=== PATIENT | female | born 1990 | race Caucasian/White ===

== ENCOUNTER 2017-02-12 13:51 | Emergency (ER) | payer BC ==
[2017-02-12 14:03] VITALS: BP 95/57
[2017-02-12] MEDS ORDERED: Albuterol HFA INHALER* 8 gm MDI INH ONE (14:41)
--- NOTE | 2017-02-12 14:42 | UC ---
Respiratory Complaint HPI - HPI Summary HPI Summary: 26 yo smoker with cough (productive) x 4 days no f/c no n/v she is 14 wks smoker has used inhaler in the past - History of Current Complaint Chief Complaint: UCRespiratory Stated Complaint: UPPER RESP Time Seen by Provider: 02/12/17 14:14 Hx Obtained From: Patient Hx Last Menstrual Period: 06/17/15 Onset/Duration: Gradual Onset, Lasting Days Timing: Constant Severity Initially: Mild Severity Currently: Moderate Pain Intensity: 2 Pain Scale Used: 0-10 Numeric Character: Cough: Productive Aggravating Factors: Deep Breaths, Recumbent Position, Nothing - talking Alleviating Factors: Nothing Associated Signs And Symptoms: Positive: Wheezing Related History: Similar Episode/Dx as: - bronchitis - Allergies/Home Medications Allergies/Adverse Reactions: Allergies Allergy/AdvReac Type Severity Reaction Status Date / Time Tramadol Allergy Intermediate Itching Verified 02/12/17 13:58 PMH/Surg Hx/FS Hx/Imm Hx Previously Healthy: Yes Respiratory History: Bronchitis - Surgical History Surgical History: Yes Surgery Procedure, Year, and Place: TONSILLECTOMY. D&C - Family History Known Family History: Positive: Cardiac Disease, Respiratory Disease - Social History Alcohol Use: None Substance Use Type: None Smoking Status (MU): Heavy Every Day Tobacco Smoker Type: Cigarettes Amount Used/How Often: 1 pack per day Length of Time of Smoking/Using Tobacco: 7 yrs Have You Smoked in the Last Year: Yes Household Exposure Type: Cigarettes Cessation Counseling: Patient Advised to Stop Review of Systems Constitutional: Negative Skin: Negative Eyes: Negative ENT: Negative Respiratory: Cough Cardiovascular: Negative Gastrointestinal: Negative Genitourinary: Negative Motor: Negative Neurovascular: Negative Musculoskeletal: Negative Neurological: Negative Psychological: Negative All Other Systems Reviewed And Are Negative: Yes Physical Exam Triage Information Reviewed: Yes Appearance: Well-Appearing, No Pain Distress, Well-Nourished Vital Signs: Initial Vital Signs Temp 98.3 F 02/12/17 13:58 Pulse 97 02/12/17 13:58 Resp 16 02/12/17 13:58 BP 95/57 02/12/17 13:58 Pulse Ox 99 02/12/17 13:58 Eyes: Positive: Conjunctiva Clear ENT: Positive: Hearing grossly normal, Pharynx normal, TMs normal. Negative: Nasal congestion, Nasal drainage, Tonsillar swelling, Tonsillar exudate, Trismus , Muffled/hoarse voice Neck: Positive: Supple, Nontender, No Lymphadenopathy Respiratory: Positive: No respiratory distress, No accessory muscle use, Wheezing - with forced expiration Cardiovascular: Positive: RRR, No Murmur Musculoskeletal: Positive: ROM Intact, No Edema Neurological: Positive: Alert Psychological Exam: Normal Skin Exam: Normal UC Diagnostic Evaluation - Laboratory O2 Sat by Pulse Oximetry: 99 - normal/not hypoxic Respiratory Course/Dx - Differential Dx/Diagnosis Provider Diagnoses: acute bronchitis with bronchospasm. 14 wks . tobacco abuse Discharge - Discharge Plan Condition: Stable Disposition: HOME Prescriptions: Amoxicillin (*) [Amoxicillin 875 MG (*)] 875 mg PO BID #14 tab Prednisone [Deltasone] 40 mg PO DAILY #10 tab Patient Education Materials: Acute Bronchitis (ED) Referrals: Richie St [Primary Care Provider] - Additional Instructions: YOU NEED TO STOP SMOKING recheck for worsening symptoms recheck in 4 days if not better use inhaler 2 puffs 4x day for 7 days
[2017-02-12] MEDS ORDERED: Ondansetron ODT TAB* 4 MG PO ONE (15:02)
== END 2017-02-12 14:59 | disposition home or self-care (01) ==
LOC: UCCORT 13:51
DX: O26.892 Other specified pregnancy related conditions, second trimester (principal); J02.9 Acute pharyngitis, unspecified; O99.332 Smoking (tobacco) complicating pregnancy, second trimester; J20.9 Acute bronchitis, unspecified; Z3A.14 14 weeks gestation of pregnancy
CPT/HCPCS: 99213; A9270-GY; G0463

== ENCOUNTER 2018-03-31 14:18 | Emergency (ER) | payer BC ==
[2018-03-31 14:33] VITALS: BP 113/55
--- NOTE | 2018-03-31 14:54 | UC ---
Abdominal Pain Female HPI - HPI Summary HPI Summary: 27 year old female with onset of mid abdominal pain yesterday morning. States pain has been fairly constant but does wax and wane with intensity. Associated with nausea and several episodes of watery diarrhea of yellowish stool. Denies fever, chills, CP, SOB, back or flank pain, dysuria, frequency, urgency, hematuria, vaginal discharge. Last normal menses was end of January into February. Reports 5 days of spotting at end of February. Sexually active. No contraception. PSH significant for D&C, elective . - History of Current Complaint Chief Complaint: UCAbdominalPain Stated Complaint: STOMACH COMPLAINT Time Seen by Provider: 03/31/18 14:37 Hx Obtained From: Patient Hx Last Menstrual Period: 06/17/15 ?: No - Possible Onset/Duration: Gradual Onset, Lasting Days - 2 Timing: Constant Severity Initially: Mild Severity Currently: Severe Pain Intensity: 7 Location: Other - Mid-abdominal/supraumbilical Radiates: No Character: Unable to describe Alleviating Factor(s): Position, Other: - movement Associated Signs and Symptoms: Positive: Nausea, Diarrhea. Negative: Fever, Chest Pain, Dizzy, Back Pain, Constipation, Blood in Stool, Urinary Symptoms, Vaginal Bleeding, Vaginal Discharge, Vomiting - Risk Factors Ectopic Risk Factor: Negative Ovarian Torsion Risk Factor: Negative Allergies/Adverse Reactions: Allergies Allergy/AdvReac Type Severity Reaction Status Date / Time tramadol Allergy Itching Verified 03/31/18 14:36 PMH/Surg Hx/FS Hx/Imm Hx Previously Healthy: Yes - Surgical History Surgical History: Yes Surgery Procedure, Year, and Place: TONSILLECTOMY. D&C. Elective - Family History Known Family History: Positive: Cardiac Disease, Respiratory Disease - Social History Occupation: Employed Full-time Lives: With Family Alcohol Use: None Substance Use Type: None Smoking Status (MU): Heavy Every Day Tobacco Smoker Type: Cigarettes Amount Used/How Often: 1 pack per day Length of Time of Smoking/Using Tobacco: 7 yrs Have You Smoked in the Last Year: Yes Household Exposure Type: Cigarettes Review of Systems Constitutional: Negative Skin: Negative Respiratory: Negative Cardiovascular: Negative Gastrointestinal: Abdominal Pain, Diarrhea, Nausea Genitourinary: Negative Is Patient Immunocompromised?: No All Other Systems Reviewed And Are Negative: Yes Physical Exam Triage Information Reviewed: Yes Appearance: Pain Distress, Other: - Overweight Vital Signs: Initial Vital Signs Temp 98.2 F 03/31/18 14:28 Pulse 89 03/31/18 14:28 Resp 18 03/31/18 14:28 BP 113/55 03/31/18 14:28 Pulse Ox 99 03/31/18 14:28 Vital Signs Reviewed: Yes Respiratory: Positive: Lungs clear, Normal breath sounds, No respiratory distress Cardiovascular: Positive: RRR, No Murmur Abdomen Description: Positive: No Organomegaly, Soft, Guarding - RLQ, McBurney' s Point Tenderness. Negative: CVA Tenderness (R), CVA Tenderness (L) Bowel Sounds: Positive: Present, Hyperactive Skin Exam: Normal Diagnostics - Laboratory Diagnostic Studies Completed/Ordered: POC urinalysis + trace blood, POC urine negative Abd Pain Female Course/Dx - Course Course Of Treatment: 27 year old female with onset of mid abdominal pain yesterday morning with nasuea and several episodes of watery, yellow diarrhea. Denies fever, chills, urinary symptoms, back/flank pain, or vaginal discharge. POC urinalysis showed trace blood. POC urine negative. Abdominal pain worsens with any movement and patient was exquisitly tender to RLQ on exam. Recommend evaluation in ED. Patient verbalizes understanding and agrees with POC. - Differential Dx/Diagnosis Differential Diagnosis: Appendicitis, Gall Bladder Disease, Pancreatitis, Pelvic Inflammatory Disease, Renal Colic, Urinary Tract Infection Provider Diagnoses: Acute abdominal pain in a female - Physician Notification/Consults Discussed Care of Patient With: Kathy Ho NP Time Discussed With Above Provider: 15:02 Instructed by Provider To: MD Will See In ED - Patient to go by private vehicle. Discharge - Sign-Out/Discharge Documenting (check all that apply): Patient Departure - Discharge Plan Condition: Stable Disposition: HOME-RECOMMEND TO ED Patient Education Materials: Acute Abdominal Pain (ED) Referrals: No Primary Care Phys,NOPCP [Primary Care Provider] - Additional Instructions: Based on your symptoms I am recommending that you be evaluated in the Emergency Room to rule out significant abdominal disease such as appendicitis, gall bladder disease, or pancreatitis. - Billing Disposition and Condition Condition: STABLE Disposition: Home-Recommend to ED
== END 2018-03-31 15:00 | disposition home health service (06) ==
LOC: UCCORT 14:18
DX: R10.9 Unspecified abdominal pain (principal); Z88.6 Allergy status to analgesic agent; F17.210 Nicotine dependence, cigarettes, uncomplicated
CPT/HCPCS: 81003; 84702; 99212; G0463

== ENCOUNTER 2019-04-28 17:41 | Emergency (ER) | payer BC ==
[2019-04-28 17:55] VITALS: BP 119/67
--- NOTE | 2019-04-28 18:07 | UC ---
Cardiac HPI - HPI Summary HPI Summary: 28 yo with onset of severe right chest pain with radiation to the back, about one hour prior to admission, without nausea or diaphoresis. She has had about one month of upper abdominal discomfort, no relation to meals, episodic, without clear exacerbating or relieving factors. No associated vomiting, nausea , dysphaigia, diarrhea or lower abdominal pain Took Tums today without relief. Ate a burger today at lunch, smokes up to 2 ppd and drinks up to 48 ounces of iced caffeinated drinks per day. Not short of breath, but has a pain with a deep breath. 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 Has no recall of a specific injury. - History of Current Complaint Chief Complaint: UCChestPain Stated Complaint: CHEST PAIN Time Seen by Provider: 04/28/19 17:57 Hx Obtained From: Patient Hx Last Menstrual Period: last month Onset/Duration: Sudden Onset, Lasting Hours - 2 Initial Severity: Severe Current Severity: Moderate Pain Intensity: 6 Chest Pain Location: Right Anterior Aggravating Factor(s): Movement, Deep Breaths Alleviating Factor(s): Rest Associated Signs & Symptoms: Positive: Chest Pain - Risk Factors Pulmonary Embolism Risk Factors: Smoking Cardiac Risk Factors: Smoking, Family History Atrial Fibrillation: Negative TAD Risk Factors: Smoking AMI/ACS Risk Factors: Sedentary Lifestyle - Allergy/Home Medications Allergies/Adverse Reactions: Allergies Allergy/AdvReac Type Severity Reaction Status Date / Time tramadol Allergy Itching Verified 04/28/19 17:55 PMH/Surg Hx/FS Hx/Imm Hx Previously Healthy: Yes GI/ History: Other - GI assessment of diarrhea in 2019, no coloscopy done, dx viral gastroenteritis - Surgical History Surgical History: Yes Surgery Procedure, Year, and Place: TONSILLECTOMY. D&C. Elective - Family History Known Family History: Positive: Cardiac Disease, Respiratory Disease - Social History Occupation: Employed Full-time Lives: With Family Alcohol Use: None Substance Use Type: None Smoking Status (MU): Heavy Every Day Tobacco Smoker Type: Cigarettes Amount Used/How Often: 1 pack per day Length of Time of Smoking/Using Tobacco: 7 yrs Have You Smoked in the Last Year: Yes Household Exposure Type: Cigarettes Review of Systems All Other Systems Reviewed And Are Negative: Yes Constitutional: Positive: Negative Skin: Positive: Negative Eyes: Positive: Negative ENT: Positive: Negative Respiratory: Positive: Shortness Of Breath - with deep inspiration, feels a catch Cardiovascular: Positive: Chest Pain Gastrointestinal: Positive: Abdominal Pain - off and on has epigrastric fullness and bloating Genitourinary: Positive: Negative Motor: Positive: Negative Neurovascular: Positive: Negative Musculoskeletal: Positive: Negative Neurological: Positive: Negative Psychological: Positive: Negative Is Patient Immunocompromised?: No Physical Exam Triage Information Reviewed: Yes Appearance: Well-Appearing, Pain Distress - mild to moderate, Other: - No jaundice or scleral icterus Vital Signs: Initial Vital Signs Temp 98.7 F 04/28/19 17:51 Pulse 77 04/28/19 17:51 Resp 16 04/28/19 17:51 BP 119/67 04/28/19 17:51 Pulse Ox 98 04/28/19 17:51 Vital Signs Reviewed: Yes Eye Exam: Other - SLADE Eyes: Positive: Conjunctiva Clear ENT: Positive: Pharynx normal Neck: Positive: Supple, Nontender, No Lymphadenopathy Respiratory: Positive: Lungs clear, Normal breath sounds, No respiratory distress, No accessory muscle use Cardiovascular: Positive: RRR, No Murmur Abdominal Exam: Other - tender without guarding or rebound Abdomen Description: Positive: No Organomegaly, Soft, Other: - tendermess medial liver edge without guarding or rebound Bowel Sounds: Positive: Present Musculoskeletal Exam: Normal Neurological Exam: Normal Neurological: Positive: Alert, Muscle Tone Normal Skin Exam: Normal Diagnostics - EKG Cardiac Rate: NL Cardiac Rhythm: Sinus: Normal Ectopy: None ST Segment: Normal - Assessment/Plan Course Of Treatment: We discussed possible sources of pain ~some elements suggest possible glallstones. ~gastritis secondary to smoking and high intake of caffein ~chest wall pain related to physical nature of her work She declined toradol injction or antacids here today. She wants to try additional use of TUMS Reviewed need to stop smoking and decrease caffeine, make moves to an improved diet. - Differential Diagnoses - Chest Pain Differential Diagnosis/HQI/PQRI: ACS, GI Disease, Pulmonary Embolism - Clinical Impression Provider Diagnosis: Gastritis, Acute chest wall pain, High dependence on smoking Discharge ED - Sign-Out/Discharge Documenting (check all that apply): Patient Departure All imaging exams completed and their final reports reviewed: No Studies - Discharge Plan Condition: Stable Disposition: HOME Prescriptions: Omeprazole (Nf) [Prilosec (NF)] 40 mg PO DAILY #30 capsule. Patient Education Materials: Gastritis (ED) Forms: *Work Release Referrals: No Primary Care Phys,NOPCP [Primary Care Provider] - Additional Instructions: Begin use of omeprazole 40mg once daily to ease the upper abdominal pain related to excess stomach acid. Take on an empty stomach about 20 to 30 minutes before eating. 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 Make efforts to stop smoking, decrease caffeine, and eat less fast food. I do think that you also have some chest wall strain. Please try using ibuprofen 600mg after eating and taking TUMS. - Billing Disposition and Condition Condition: STABLE Disposition: Home
== END 2019-04-28 18:39 | disposition home or self-care (01) ==
LOC: UCCORT 17:41
DX: K29.70 Gastritis, unspecified, without bleeding (principal); R07.89 Other chest pain; F17.210 Nicotine dependence, cigarettes, uncomplicated
CPT/HCPCS: 93005; 99212; G0463